=== PATIENT | male | born 1980 | race Caucasian/White ===

== ENCOUNTER 2016-08-26 22:54 | Emergency (ER) | payer MEDICAID ==
[2016-08-27 01:23] VITALS: BP_SYST 67
== END 2016-08-26 23:00 | disposition left against medical advice (07) ==
LOC: JP.ED 22:54
DX: Z53.21 Procedure and treatment not carried out due to patient leaving prior to being seen by health care provider (principal)

== ENCOUNTER 2016-09-01 07:49 | Emergency (ER) | payer MEDICAID ==
[2016-09-01 08:03] VITALS: BP 128/76
[2016-09-01] MEDS ORDERED: cefTRIAXone 1 GM Vial IM ONE ×2 (08:45→09:00)
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
== END 2016-09-01 09:20 | disposition home or self-care (01) ==
LOC: JP.ED 07:49
DX: L03.221 Cellulitis of neck (principal)
CPT/HCPCS: 96372; 99283; J0696

== ENCOUNTER 2017-03-23 07:33 | Day surgery (SDC) | payer MEDICAID ==
[~2017-03-23 07:33] MED LIST: Bupivacaine 0.5% 50 ML MDV ONE; Lidocaine 1% with EPINEPHrine 1:100,000 50 ML MDV ONE
[2017-03-23] MEDS ORDERED: Dextrose 5%-Lactated Ringers 1,000 ML IV SCH (09:00)
[2017-03-23] MEDS ORDERED: Propofol 200 MG/20 ML SDV ONE ×2 (09:08→09:57)
[2017-03-23] MEDS ORDERED: fentaNYL 100 MCG/2 ML SDV ONE (09:08)
[2017-03-23] MEDS ORDERED: Midazolam 1 MG/ML 2 ML SDV ONE ×2 (09:08→09:29)
[2017-03-23] MEDS ORDERED: lamoTRIgine 100 MG Tab PO ONE (09:15)
[2017-03-23] MEDS ORDERED: ceFAZolin 2 GM in Premix Bag 1 BAG IV ONE ×2 (09:45)
[2017-03-23] MEDS ORDERED: hydrOXYzine HCl 100 MG/2 ML SDV IM ONE (10:42)
[2017-03-23 12:52] VITALS: BP 127/78
[2017-03-23] MEDS ORDERED: Acetaminophen/HYDROcodone 325-5 MG Tab PO PRN (12:52)
--- NOTE | 2017-03-23 15:18 | OR ---
DATE OF PROCEDURE: 03/23/2017 PREOPERATIVE DIAGNOSIS: Epigastric (supraumbilical) hernia. POSTOPERATIVE DIAGNOSIS: Epigastric (supraumbilical) hernia. PROCEDURE: Repair of epigastric hernia with a 6.4 cm in diameter Ventralex mesh patch with straps. SURGEON: Mayur Alston MD. ANESTHESIA: IV anesthesia with monitored anesthesia care. INDICATION: This 36-year-old white male had some nausea and vomiting, and then noticed a mass in his supraumbilical area. It is tender. He was found to have a hernia, which appeared to be reducible. He is a big man and it was difficult to palpate it well. He is admitted for repair of this epigastric, which is in the supraumbilical area, hernia. I counseled him for repair of it possibly with mesh including risks and alternatives, and he gave his informed consent to proceed. DESCRIPTION OF PROCEDURE: After adequate IV anesthesia was obtained, the patient's abdomen was prepped and draped in the usual sterile fashion. Time-out was held. Lidocaine 1% with epinephrine in a 50:50 mix with 0.5% Marcaine was infiltrated in the supraumbilical area. A vertical supraumbilical incision was made. This was carried deep bluntly, sharply, and with electrocautery to the hernia. The hernia was dissected free on all sides. The sac was opened and excised. It was noted to contain omentum. We were unable to reduce the omentum. We excised a good portion of the incarcerated omentum and then reduced the residual back into the abdominal cavity. The defect was large enough that we could get a Ventralex mesh patch with straps in it. We obtained a 6.4 cm in diameter Ventralex mesh patch with straps manufactured by [employer]. This was placed down underneath the defect. The straps were pulled bringing the mesh to the posterior aspect of the anterior abdominal wall. The straps were cut to appropriate length and anchored to the anterior fascia with interrupted stitches of 2-0 Vicryl. The fascia was closed over the mesh with interrupted 2- 0 Vicryl suture. The subcutaneous tissue was closed with interrupted 2-0 Vicryl suture. 4-0 Vicryl using a subcuticular stitch was placed to approximate the skin. Dermabond was applied. The patient tolerated the procedure well and was brought to the recovery room in good condition. Mayur Alston MD /[id number] MTDD
== END 2017-03-23 14:00 | disposition home or self-care (01) ==
LOC: JP.SDS 07:33
PROVIDERS: ATTEND Surgery
DX: K42.0 Umbilical hernia with obstruction, without gangrene (principal)
CPT/HCPCS: 49587; A9270; J0690; J2250; J2704; J3010; J3410; J7042; 88302; C1781

== ENCOUNTER 2017-11-09 14:13 | Emergency (ER) | payer MEDICAID ==
[2017-11-09] MEDS ORDERED: Ketorolac 30 MG/ML SDV IVPUSH ONE (14:20)
[2017-11-09] MEDS ORDERED: Sodium Chloride 0.9% 10 ML Syringe FLUSH PRN (14:20)
[2017-11-09] MEDS ORDERED: HYDROmorphone 1 MG/ML Syringe IVPUSH ONE (14:20)
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
[2017-11-09] MEDS ORDERED: Bacitracin Oint 1 GM U/D Packet TOP ONE (14:28)
[2017-11-09] MEDS ORDERED: Sodium Chloride 0.9% 1,000 ML IV SCH (14:30)
[2017-11-09] MEDS ORDERED: Morphine 10 MG/ML Syringe IVPUSH PRN (14:36)
[2017-11-09] MEDS ORDERED: Silver Sulfadiazine 1% Crm 400 GM Jar TOP ONE (14:59)
[2017-11-09] MEDS ORDERED: Morphine 10 MG/ML Syringe IVPUSH ONE ×2 (15:09→15:30)
[2017-11-09 16:21] VITALS: BP 120/70
[2017-11-09] MEDS ORDERED: Acetaminophen/oxyCODONE 325-5 MG Tab PO ONE (16:28)
[2017-11-09] MEDS ORDERED: Silver Sulfadiazine 1% Crm 400 GM Jar TOP SCH (21:00)
== END 2017-11-09 16:50 | disposition home or self-care (01) ==
LOC: JP.ED 14:13
DX: T25.222A Burn of second degree of left foot, initial encounter (principal); T25.221A Burn of second degree of right foot, initial encounter; Z79.899 Other long term (current) drug therapy
CPT/HCPCS: 16020; 96361; 96374; 96375; 96376; 99283; A9270; J1170; J1885; J2270; J7030; J7050

== ENCOUNTER 2018-08-08 06:35 | Day surgery (SDC) | payer MEDICAID ==
[2018-08-08] MEDS ORDERED: Lidocaine 1% with EPINEPHrine 1:100,000 50 ML MDV ONE (06:54)
[2018-08-08] MEDS ORDERED: Sodium Tetradecyl Sulfate 1% 20 MG/2 ML SDV ONE (06:54)
[2018-08-08] MEDS ORDERED: Sodium Chloride 0.9% 10 ML ONE (06:54)
[2018-08-08] MEDS ORDERED: Sodium Chloride 0.9% 1,000 ML IV SCH (07:00)
[2018-08-08] MEDS ORDERED: fentaNYL 100 MCG/2 ML SDV ONE (07:44)
[2018-08-08] MEDS ORDERED: Propofol 200 MG/20 ML SDV ONE ×2 (07:44)
[2018-08-08] MEDS ORDERED: Midazolam 1 MG/ML 2 ML SDV ONE (07:44)
[2018-08-08] MEDS: Lidocaine 1% w/EPINEPHrine 50 ML, Sodium Bicarbonate 5 MEQ in Sodium Chloride 0.9% 950 ML INJECT SCH ×2 (08:03→12:04)
[2018-08-08] MEDS ORDERED: Sodium Chloride 0.9% 10 ML SDV FLUSH ONE (08:15)
[2018-08-08 09:37] VITALS: BP 114/68
--- NOTE | 2018-08-08 09:46 | OR ---
DATE OF PROCEDURE: 08/08/2018 SURGEON: Tad Devine MD PROCEDURES: 1. Radiofrequency ablation of left greater saphenous vein. 2. Radiofrequency ablation of right greater saphenous vein. 3. Sclerotherapy of left leg, multiple. 4. Sclerotherapy of right leg, multiple. 5. Compression wrap, left leg (79340). 6. Compression wrap, right leg ([id number]). COMPLICATIONS: None. ADMINISTRATIVE COORDINATOR: None. ANESTHESIA: MAC/local. PREOPERATIVE DIAGNOSIS: Venous insufficiency with inflammation and pain. POSTOPERATIVE DIAGNOSIS: Venous insufficiency with inflammation and pain. RISKS: Risks, benefits, alternatives, and limitations including, but not limited to infection, bleeding, perforation, and DVT were explained to the patient, who wished to proceed. PROCEDURE IN DETAIL: The patient was placed in supine position. The left GSV was addressed first. This was accessed at the level of the ankle using a 21 guage needle with a 35,000th wire through a 7-St Helenian sheath. RFA probe was advanced to greater than 3 cm from the deep junction. Tumescent fluid was injected in a 1-cm jacket around this. This was verified a second and a third time. Direct even pressure was applied as the probe was deployed x2 proximally and distally, and x1 in all other segments. Sheath and device were then removed. Dermabond was applied. The right leg was then performed in the same manner, same fashion, same technique, in the same sequence, and using the same equipment. Sclerotherapy was then performed of left and right legs using 0.33% sodium tetradecyl, 4 on right and 4 on the left. This was drawn back to ensure intravascular injection only and no more than 2 mL was applied in one location. A two-layer two-stage compression, distal to proximal 20 mmHg gradient, was then performed with [id number] compression wrappings. The patient tolerated the procedure well. Tad Devine MD /[id number]
== END 2018-08-08 10:10 | disposition home or self-care (01) ==
LOC: JP.SDS 06:35
PROVIDERS: ATTEND Surgery
DX: I80.03 Phlebitis and thrombophlebitis of superficial vessels of lower extremities, bilateral (principal); I87.2 Venous insufficiency (chronic) (peripheral); R60.9 Edema, unspecified; G47.33 Obstructive sleep apnea (adult) (pediatric); K21.9 Gastro-esophageal reflux disease without esophagitis; E66.01 Morbid (severe) obesity due to excess calories; Z68.35 Body mass index [BMI] 35.0-35.9, adult; Z86.69 Personal history of other diseases of the nervous system and sense organs
CPT/HCPCS: 36471; 36475; J1642; J2250; J2704; J3010; J7030; J3490

== ENCOUNTER 2023-07-19 19:33 | Emergency (ER) | payer MEDICAID ==
[2023-07-19] MEDS: Bacitracin Oint 1 GM U/D Packet TOP ONE (21:52)
[2023-07-19 22:33] VITALS: BP 136/81; PULSE 66
== END 2023-07-19 22:34 | disposition home or self-care (01) ==
LOC: JP.ED 19:33
DX: S91.201A Unspecified open wound of right great toe with damage to nail, initial encounter (principal); E66.9 Obesity, unspecified; Z86.16 Personal history of COVID-19; Z79.899 Other long term (current) drug therapy; W22.8XXA Striking against or struck by other objects, initial encounter
CPT/HCPCS: 73620-26-RT; 73620-RT; 99283

== ENCOUNTER 2024-04-21 06:52 | Day surgery (SDC) | payer MEDICAID ==
[2024-04-21 07:25] LABS: HEMATOCRIT 44.8 % (38.4-49.7); HEMOGLOBIN 15.6 g/dL (12.9-16.9); MEAN CORPUSCULAR HEMOGLOBIN 30.7 pg (31.6-35.5); MEAN CORPUSCULAR HGB CONC 34.8 g/dL (31.6-35.5); MEAN CORPUSCULAR VOLUME 88.2 fL (81.4-99.0); RED BLOOD CELL COUNT 5.08 M/uL (4.14-5.76); WHITE BLOOD CELL COUNT,WBC 7.3 K/uL (3.2-11.0)
[2024-04-21] MEDS ORDERED: fentaNYL 250 MCG/5 ML SDV ONE ×2 (07:31→09:16)
[2024-04-21] MEDS ORDERED: Propofol 200 MG/20 ML SDV ONE (07:32)
[2024-04-21] MEDS ORDERED: Glycopyrrolate 0.2 MG/ML 5 ML MDV ONE (07:32)
[2024-04-21] MEDS ORDERED: Neostigmine Methylsulfate 10 MG/10 ML MDV ONE (07:32)
[2024-04-21] MEDS ORDERED: Succinylcholine 200 MG/10 ML MDV ONE (07:32)
[2024-04-21] MEDS ORDERED: Ondansetron 4 MG/2 ML SDV ONE (07:32)
[2024-04-21] MEDS ORDERED: Dexamethasone 4 MG/ML SDV ONE (07:32)
[2024-04-21] MEDS ORDERED: Rocuronium 50 MG/5 ML Vial ONE (07:32)
[2024-04-21 07:48] LABS: ALANINE AMINOTRANSFERASE,ALT 64 U/L (12-78); ALBUMIN 3.7 g/dL (3.4-5.0); ALKALINE PHOSPHATASE 86 U/L (46-116); ASPARTATE AMNIOTRANSFERASE,AST 42 U/L (15-37); BILIRUBIN TOTAL 0.6 mg/dL (0.2-1.0); BLOOD UREA NITROGEN,BUN 9 mg/dL (7-18); CALCIUM 8.8 mg/dL (8.5-10.1); CARBON DIOXIDE,CO2 27 mmol/L (21-32); CHLORIDE,CL 103 mmol/L (100-108); CREATININE 0.9 mg/dL (0.8-1.3); EST CRCL DRUG DOSING (CG) 95.89 mL/min; ESTIMATED GFR 107 mL/min (>60); GLUCOSE RANDOM 91 mg/dL (74-106); POTASSIUM,K 3.9 mmol/L (3.6-5.2); PROTEIN TOTAL,TP 7.5 g/dL (6.4-8.2); SODIUM,NA 139 mmol/L (140-148)
[2024-04-21 07:49] LABS: ANION GAP 12.9 mmol/L (5.0-14.0)
[2024-04-21] MEDS: metroNIDAZOLE/Normal Saline 500 MG in Premix Bag 1 BAG IV ONE (08:00)
[2024-04-21] MEDS: Lactated Ringers 1,000 ML IV SCH (08:02)
[2024-04-21] MEDS: Albuterol/Ipratropium 3.0-0.5 MG/3 ML Neb Soln NEB ONE (08:03)
[2024-04-21] MEDS: ceFAZolin 2 GM in Premix Bag 1 BAG IV ONE (08:40)
[2024-04-21] MEDS: Bupivacaine 0.5%/EPINEPHrine 1:200,000 50 ML MDV ONE (09:25)
[2024-04-21] MEDS ORDERED: Ketorolac 30 MG/ML SDV ONE (09:37)
[2024-04-21] MEDS: Acetaminophen/HYDROcodone 325-5 MG Tab PO PRN (11:33)
[2024-04-21 11:55] VITALS: BP 116/58; PULSE 64
== END 2024-04-21 12:45 | disposition home or self-care (01) ==
LOC: JP.SDS 06:52
PROVIDERS: ATTEND Surgery
DX: K43.0 Incisional hernia with obstruction, without gangrene (principal); G47.33 Obstructive sleep apnea (adult) (pediatric)
CPT/HCPCS: 36415; 49614; 80053; 85027; 94640; A9270; J0171; J0330; J0690; J1100; J1596; J1836; J1885; J2405; J2704; J2710; J2795; J3010; J3490; J7120; C1781; J7620

== ENCOUNTER 2024-06-16 07:33 | Day surgery (SDC) | payer MEDICAID ==
[~2024-06-16 07:33] MED LIST changes: -Bupivacaine 0.5% 50 ML MDV ONE; -Lidocaine 1% with EPINEPHrine 1:100,000 50 ML MDV ONE; +Midazolam 1 MG/ML 2 ML SDV ONE; +Propofol 200 MG/20 ML SDV ONE; +fentaNYL 100 MCG/2 ML SDV ONE
[2024-06-16] MEDS: Lactated Ringers 1,000 ML IV SCH (08:16)
[2024-06-16 09:40] VITALS: BP 119/90; PULSE 51
== END 2024-06-16 09:57 | disposition home or self-care (01) ==
LOC: JP.SDS 07:33
PROVIDERS: ATTEND Surgery
DX: Z12.11 Encounter for screening for malignant neoplasm of colon (principal)
CPT/HCPCS: 45378; J2250; J2704; J3010; J7120